=== PATIENT | female | born 1965 | race Caucasian/White ===

== ENCOUNTER → 2024-11-13 | Day surgery (SDC) | payer BC, OTHER ==
[~2024-11-13] MED LIST: AMLODIPINE BESYL5 MG PO; FLONASE ALLERG9.9 ML INH; GABAPENTIN300 MG PO; HYDROCHLOROTHIA25 MG PO; JANUVIA25 MG PO; LIDOCAINE HCL 2% LOCAL INJ 5 ML SDV VIAL INJ ONE; MAG GLYCINATE100 MG PO; METFORMIN HCL500 MG PO; METOCLOPRAMIDE HCL 10 MG/2ML VIAL ONE; MULTIVITAMIN200 MCG PO; OMEPRAZOLE40 MG PO; PROPOFOL IV EMULSION 10 MG/ML 20 ML VIAL ONE; VITAMIN B122500 MCG PO; VITAMIN C GUMMIES PO
[2024-11-13] MEDS: LACTATED RINGER'S 1,000 ML ONE (09:52)
[2024-11-13 11:36] VITALS: TEMP 97.9
[2024-11-13 12:00] VITALS: BP 127/82; PULSE 77; RESP 18; O2SAT 99
== END | disposition home or self-care (01) ==
LOC: ENDO 11-12 11:59
PROVIDERS: ATTEND Internal Medicine Gastroenterology
DX: K22.2 Esophageal obstruction (principal); K29.70 Gastritis, unspecified, without bleeding; K20.90 Esophagitis, unspecified without bleeding; K21.9 Gastro-esophageal reflux disease without esophagitis; D64.9 Anemia, unspecified; E11.9 Type 2 diabetes mellitus without complications; I10 Essential (primary) hypertension; Z01.810 Encounter for preprocedural cardiovascular examination; Z79.84 Long term (current) use of oral hypoglycemic drugs; Z68.30 Body mass index [BMI] 30.0-30.9, adult; Z71.89 Other specified counseling; Z71.3 Dietary counseling and surveillance
CPT/HCPCS: 36415; 43239; 43450; 82948; 93005; J2003; J2470; J2704; J2765; J7121